=== PATIENT | female | born 1990 | race Caucasian/White ===

== ENCOUNTER 2019-10-05 16:46 | Emergency (ER) | payer MEDICAID ==
[~2019-10-05] VITALS: Ht 172.7 cm; Wt 90.0 kg
[2019-10-05 16:59] VITALS: BP 135/87
[2019-10-05] MEDS ORDERED: acetaminophen 325mg tablet PO ONE (17:25)
== END 2019-10-05 18:06 | disposition home or self-care (01) ==
LOC: ER 16:47
DX: R05 Cough (principal); R50.9 Fever, unspecified; J02.9 Acute pharyngitis, unspecified
CPT/HCPCS: 36415; 87081; 87502; 87503; 87880; 99283